=== PATIENT | female | born 2000 | race Asian ===

== ENCOUNTER 2024-04-24 12:29 | Emergency (ER) | payer MEDICAID, OTHER ==
[~2024-04-24] VITALS: Ht 162.6 cm; Wt 85.6 kg
[2024-04-24 13:49] LABS: BASO % 0.4 % (0.0-1.0); EOS # 0.2 10^3/uL (0.0-0.5); EOS % 3.1 % (0.0-3.0); HEMATOCRIT 41.1 % (36.0-47.0); LYMPH # 2.1 10^3/uL (1.5-5.0); LYMPH % 29.1 % (24.0-44.0); MEAN CORPUSCULAR HEMOGLOBIN 25.7 pg (27.0-33.0); MEAN CORPUSCULAR HGB CONC 31.6 g/dl (32.0-36.5); MEAN CORPUSCULAR VOLUME 81.2 fl (80.0-96.0); MONO # 0.3 10^3/uL (0.0-0.8); NEUTROPHILS # 4.6 10^3/uL (1.5-8.5); NEUTROPHILS % 63.1 % (36.0-66.0); PLATELET COUNT, AUTOMATED 347 10^3/uL (150-450); RED BLOOD COUNT 5.06 10^6/uL (4.00-5.40); WHITE BLOOD COUNT 7.2 10^3/uL (4.0-10.0)
[2024-04-24 14:17] LABS: HCG, SERUM QUALITATIVE NEGATIVE (NEGATIVE); LIPASE 27 U/L (12-53)
[2024-04-24 14:19] LABS: ALBUMIN 4.3 G/DL (3.2-5.2); ALKALINE PHOSPHATASE 83 U/L (46-116); ALT/SGPT 19 U/L (7.0-40); AST/SGOT 10 U/L (<34); BILIRUBIN,DIRECT < 0.1 MG/DL (<0.4); BILIRUBIN,TOTAL 0.3 MG/DL (0.3-1.2); BLOOD UREA NITROGEN 9 MG/DL (9-23); CALCIUM LEVEL 10.2 MG/DL (8.5-10.1); CARBON DIOXIDE LEVEL 26 MMOL/L (20-31); CHLORIDE LEVEL 106 MMOL/L (98-107); CREATININE FOR GFR 0.73 MG/DL (0.55-1.30); GLOMERULAR FILTRATION RATE > 60.0 (>60); GLUCOSE, FASTING 98 MG/DL (60-100); POTASSIUM SERUM 4.5 MMOL/L (3.5-5.1); SODIUM LEVEL 137 MMOL/L (136-145); TOTAL PROTEIN 8.1 G/DL (5.7-8.2)
[2024-04-24] MEDS ORDERED: LO LTAB PO (14:51)
[2024-04-24] MEDS ORDERED: ISOVUE-370 76% 100ML VIAL As Ordered ONE (16:57)
[2024-04-24] MEDS: KETOROLAC 30 MG/ML 1ML VIAL IV ONE (17:20)
[2024-04-24 19:19] VITALS: BP 112/75; TEMP 96.8; O2SAT 100
== END 2024-04-24 19:31 | disposition home or self-care (01) ==
LOC: M ED 12:29
DX: K59.00 Constipation, unspecified (principal); F17.210 Nicotine dependence, cigarettes, uncomplicated
CPT/HCPCS: 74177; 80048; 80076; 83690; 84703; 85025; 96374; 99284; J1885; Q9967